=== PATIENT | female | born 1935 | race Caucasian/White ===

== ENCOUNTER 2022-05-27 14:20 | Observation (INO) | payer OTHER ==
--- OUTSIDE RECORDS SUMMARY | 2022-05-27 15:03 | XMS REPORT | Continuity of Care Document ---
:1935 Author Organization [facility] t Address [address] [place] [address] Care Team Providers Name Role Phone José Luis Pedroza Attending Clinician Unavailable IHDE_G Attending Clinician Unavailable Shield Attending Clinician Unavailable IHDE_G Admitting Clinician Unavailable Shield Admitting Clinician Unavailable Payers Payer Name Policy Type Policy Number Effective Date Expiration Date S ource MEDICARE [place]: [id number] 2001 [employer]) 00:00:00 Problems Condition Condition Condition Status Onset Resolution Last Treating Co mments Source Name Details Category Date Date Treatment Clinician Date Hypertensi Hypertensi Problem Active 2020-0 [facility] ve ve 5-20 da disorder Disorder 00:00: Medica l 00 Group Allergies, Adverse Reactions, Alerts Allergy Allergy Status Severity Reaction(s) Onset Inactive Treating Comm ents Source Name Type Date Date Clinician PENICILL Allergy Active Severe Rash [place] INS to da substanc Medical e Group Social History Smoking Status Start Date Stop Date Source Never Smoker [facility] Medications Ordered Filled Start Stop Current Ordering Indication Dosage Frequency Signature Comments Components Source Medication Medication Date Date Medication? Clinician (SIG) Name Name potassium potassium No potassium [place] chloride chloride chloride da 10MEQ 10MEQ 10MEQ Medical Group Vitamin D Vitamin D No Vitamin D [place] 50163 once 45260 once 84836 once da per week per week per week Med ical Group atorvastati atorvastati No 1 Q1D atorvastat [place] n 40 mg n 40 mg in 40 mg da tablet Take tablet Take tablet Medical 1 tablet 1 tablet Take 1 Group every day every day tablet by oral by oral every day route. route. by oral route. Issac Low Issac Low No 1 Q1D Issac Low [place] Strength 81 Strength 81 Strength da mg mg 81 mg Medical tablet,louisa tablet,louisa tablet,del Group yed release yed release ayed Take 1 Take 1 release tablet tablet Take 1 every day every day tablet by oral by oral every day route. route. by oral route. furosemide furosemide No 1 Q1D furosemide [place] 40 mg 40 mg 40 mg da tablet Take tablet Take tablet Medical 1 tablet 1 tablet Take 1 Group every day every day tablet by oral by oral every day route. route. by oral route. isosorbide isosorbide No 1 Q1D isosorbide [facility] mononitrate mononitrate mononitrat da ER 30 mg ER 30 mg e ER 30 mg M edical tablet,exte tablet,exte tablet,ext Group nded nded ended release 24 release 24 release 24 hr Take 1 hr Take 1 hr Take 1 tablet tablet tablet every day every day every day by oral by oral by oral route. route. route. Vital Signs Vital Name Observation Time Observation Value Comments Source BP Diastolic 2020-09-23 00:00:00 48 mm[Hg] [facility] Height 2020-09-23 00:00:00 62 [in_i] [facility] BMI (Body Mass 2020-09-23 00:00:00 22.3 kg/m2 [facility] Index) Group BP Systolic 2020-09-23 00:00:00 112 mm[Hg] [facility] Body Weight 2020-09-23 00:00:00 121.9 [lb_av] [facility] Procedures Procedure Date / Time Performed Performing Clinician Sourc e Tonsillectomy [facility] Appendectomy [facility] Encounters Start End Encounter Admission Attending Care Care Encounter Source Date/Time Date/Time Type Type Clinicians Facility Department ID 2022-05-25 2022-05-25 Outpatient SOHAIL Pedroza [facility] [id number] [place] 10:54:00 10:54:00 [id number] [facility] 2020 2020 Outpatient IHDE_G MMG MMG [id number] [place] 04:15:00 04:15:00 0525 Medical [facility] 2020-09-24 2020-09-24 Outpatient IHDE_G MMG MMG [id number] [place] 10:30:00 10:30:00 0521 [facility] 2020-09-23 2020-09-23 Outpatient Shield MMG MMG [id number] [place] 03:32:00 03:32:00 0520 Medical Group 2020-09-23 2020-09-23 [facility] [place] - [id number] [facility] 00:00:00 00:00:00 Seth Yañez MD: Medical [facility] [address], [place] [address] , Ph. [phone] 2020-03-24 2020-03-24 Outpatient Shield MMG MMG [id number] [place] 02:30:00 02:30:00 0519 Medical Group 2020-03-24 2020-03-24 Outpatient Shield MMG MMG [id number] [place] 02:30:00 02:30:00 1118 Medical [facility] Results Test Description Test Time Test Comments Results Result Comments Source Lipid Panel 2019-02-25 20:37:04 Test Item Value Reference Range Interpretation Comme nts Cholesterol Total (test code = 150 mg/dL 0-200 RISK OF HEART DISEASEPublished by Cholesterol Total) [place] Heart Association Analyte Optimal Borderl ine Increased RiskCHOL <200 2 00-239 >240TRIG <150 150-199 >2 00HDL Male >60 <40HDL Female > 60 <50LDL <100 130-159 >160LDL Near optimal is 100-129 Triglycerides (test code = 78 mg/dL 9-200 Triglycerides) HDL (test code = HDL) 89 mg/dL 50-60 H LDL (test code = LDL) 46 mg/dL 0-130 The eq uation being used in this calculation is LDL = (Chol - HDL) - (Trig / 5) VLDL (test code = VLDL) 16 mg/dL 5-40 The equation being used in this calculation is VLDL = Trig / 5 Chol/HDL (test code = Chol/HDL) 1.7 ratio 0.0-4.4 LDL/HDL Ratio (test code = 1 N T he equation being used in this LDL/HDL Ratio) calculation i s LDL/HDL Ratio=LDL Calc/HDL Chol Vitamin D, 33-[id number] 03:07:1134.7Vitamin D deficiency has been defined by the [place] ofMedicine and an Endocrine Society practice guideline as alevel of serum 25-OH vitamin D less than 20 ng/mL (1,2).The Endocrine Society went on to further define vitamin Dinsufficiency as a level between 21 and 29 ng/mL (2).1. IOM ([place] of [employer]). 2010. Dietary reference intakes for calcium and D. [place]: The National Academies Press.2. Viet MF, Dede DUNN, Katie INGRAM, et al. Evaluation, treatment, and prevention of vitamin D deficiency: an Endocrine Society clinical practice guideline. JCEM. 2010; 96(7):1911-30.Performed At: [facility] [address] [id number] Colin Miranda MD Ph:[phone] Sedimentation Rate [id number] 23:13:48 Test Item Value Reference Range Interpretation Comments ESR STAT (test code = ESR STAT) 10 mm/hr 0-20 Thyroid Stimulating [id number] 23:01:29 Test Item Value Reference Range Interpretation Comments TSH (test code = TSH) 2.270 mIU/mL 0.270-4.200 IG [id number] 22:58:40 Test Item Value Reference Range Interpretation Comments IG (test code = IG) 0.3 % 0.0-5.0 IG Abs (test code = IG Abs) 0 x10 N Complete Blood Count with [id number] 22:58:39 Test Item Value Reference Range Interpretation Comments WBC (test code = WBC) 6.4 x10 4.4-10.5 RBC (test code = RBC) 3.75 x10 3.75-5.20 Hgb (test code = Hgb) 11.5 g/dL 12.2-14.8 L MCV (test code = MCV) 90.90 fL 80.00-100.00 Hct (test code = Hct) 34.1 % 36.5-44.4 L MCHC (test code = 33.70 g/dL 32.00-37.50 MCHC) RDW CV (test code = 12.3 % 11.5-14.5 RDW CV) MCH (test code = MCH) 30.7 pg 27.0-32.5 Platelets (test code = 334.0 x10 140.0-440.0 Platelets) MPV (test code = MPV) 8.5 fL N Slide Review (test Auto Auto Result cr eated by code = Slide Review) GL_SJM_ SLIDE_REV_AUTO nRBC (test code = 0 N nRBC) NRBC Abs (test code = 0.00 x10 N NRBC Abs) IPF (test code = IPF) 0 % N Automated [id number] 22:58:39 Test Item Value Reference Range Interpretation Comments Neutro Auto (test code = Neutro 70.6 % 36.0-70.0 H Auto) Lymph Auto (test code = Lymph Auto) 16.8 % 12.0-44.0 [place] Auto (test code = [place] Auto) 7.7 % 0.0-11.0 Eos, Auto (test code = Eos, Auto) 3.8 % 0.0-7.0 Basophil Auto (test code = Basophil 0.8 % 0.0-2.0 Auto) Neutro Absolute (test code = Neutro 4.5 x10 1.6-7.4 Absolute) Lymph Absolute (test code = Lymph 1.07 x10 .50-4.60 Absolute) [place] Absolute (test code = [place] .49 x10 .00-1.20 Absolute) Eos Absolute (test code = Eos 0.24 x10 0.00-0.74 Absolute) Baso Absolute (test code = Baso 0.05 x10 0.00-0.21 Absolute) Comprehensive Metabolic [id number] 22:56:35 Test Item Value Reference Range Interpretation Comments Sodium Level (test code = Sodium 129.0 mmol/L 135.0-145.0 L Level) Potassium Level (test code = 4.2 mmol/L 3.5-5.1 Potassium Level) Chloride Level (test code = 91 mmol/L 98-105 L Chloride Level) CO2 (test code = CO2) 26 mmol/L 22-29 Anion Gap (test code = Anion 12 mmol/L 7-16 Gap) BUN (test code = BUN) 9.90 mg/dL 8.00-23.00 Creatinine Level (test code = 0.50 mg/dL 0.50-0.90 Creatinine Level) BUN/Creat Ratio (test code = 20 N BUN/Creat Ratio) Glucose Level (test code = 94 mg/dL 70-115 Glucose Level) Calcium Level (test code = 9.3 mg/dL 8.3-10.5 Calcium Level) Alk Phos (test code = Alk Phos) 90 U/L 35-104 Bilirubin Total (test code = 0.2 mg/dL 0.1-0.9 Bilirubin Total) Albumin Level (test code = 4.4 g/dL 3.5-5.2 Albumin Level) Protein Total (test code = 6.9 g/dL 6.4-8.3 Protein Total) ALT (test code = ALT) 6 U/L 1-33 AST (test code = AST) 15 U/L 1-32 Globulin (test code = Globulin) 2.5 g/dL 2.9-3.1 L A/G Ratio (test code = A/G 1.8 ratio N Ratio) Comprehensive Metabolic [id number] 22:56:35 Test Item Value Reference Range Interpretation Comments Sodium Level (test 129.0 mmol/L 135.0-145.0 L code = Sodium Level) Potassium Level 4.2 mmol/L 3.5-5.1 (test code = Potassium Level) Chloride Level (test 91 mmol/L 98-105 L code = Chloride Level) CO2 (test code = 26 mmol/L 22-29 CO2) Anion Gap (test code 12 mmol/L 7-16 = Anion Gap) BUN (test code = 9.90 mg/dL 8.00-23.00 BUN) Creatinine Level 0.50 mg/dL 0.50-0.90 (test code = Creatinine Level) BUN/Creat Ratio 20 N (test code = BUN/Creat Ratio) Glucose Level (test 94 mg/dL 70-115 code = Glucose Level) Calcium Level (test 9.3 mg/dL 8.3-10.5 code = Calcium Level) Alk Phos (test code 90 U/L 35-104 = Alk Phos) Bilirubin Total 0.2 mg/dL 0.1-0.9 (test code = Bilirubin Total) Albumin Level (test 4.4 g/dL 3.5-5.2 code = Albumin Level) Protein Total (test 6.9 g/dL 6.4-8.3 code = Protein Total) ALT (test code = 6 U/L 1-33 ALT) AST (test code = 15 U/L 1-32 AST) Globulin (test code 2.5 g/dL 2.9-3.1 L = Globulin) A/G Ratio (test code 1.8 ratio N = A/G Ratio) eGFR AA (test code = >60 N eGFR (e stimated eGFR AA) mL/min/1.73 m2 Glomerular Filtration Rate ) is an estimated va lue, calculated from the patient's serum creatinine usin g the MDRD equation. It is NOT the patient 's actual GFR. The eGFR provides a more clinically usef ul measure of kidn ey disease than se rum creatinine alone.This calculation marcelino es sex and race in to account, if the information is provided. If th e race is not provided, and t he patient is -Marce n, multiply by 1.2 12. If sex is not provided, and t he patient is fema le, multiply by 0.7 42. Results for pat ients <18 years of ag e have not been validated by th e MDRD study and should be interpreted wit h caution. eGFR R esult Interpretation: eGFR > or = 60 is in the Normal RangeeGF R < 60 may mean kid nuria diseaseeGFR < 1 5 may mean kidney failure Rang es recommended by the National Kidney Foundation, http://nkdep.ni h.gov Lipid [id number] 22:56:35 Test Item Value Reference Range Interpretation Comments Cholesterol Total 167 mg/dL 0-200 RISK OF HE ART (test code = DISEASEPublishe d by Cholesterol Total) [place] Heart Association Rosalva lyte Optimal Borderl ine Increased RiskC HOL <200 200-239 >240TRI G <150 150-199 >200HDL Male >60 <40HDL Fema le >60 <50LDL <100 130 -159 >160LDL Near op timal is 100-129 Triglycerides (test 125 mg/dL 9-200 code = Triglycerides) HDL (test code = HDL) 94 mg/dL 50-60 H LDL (test code = LDL) 48 mg/dL 0-130 The eq uation being used in this calcula tion is LDL = (Chol - H DL) - (Trig / 5) VLDL (test code = 25 mg/dL 5-40 The equati on being used VLDL) in this calcula tion is VLDL = Trig / 5 Chol/HDL (test code = 1.8 ratio 0.0-4.4 Chol/HDL) LDL/HDL Ratio (test 1 N The equa tion being used code = LDL/HDL Ratio) in thi s calculation is LDL/HDL Ratio=L DL Calc/HDL Chol Comprehensive Metabolic [id number] 22:56:35 Test Item Value Reference Range Interpretation Comments Sodium Level (test 129.0 mmol/L 135.0-145.0 L code = Sodium Level) Potassium Level 4.2 mmol/L 3.5-5.1 (test code = Potassium Level) Chloride Level (test 91 mmol/L 98-105 L code = Chloride Level) CO2 (test code = 26 mmol/L 22-29 CO2) Anion Gap (test code 12 mmol/L 7-16 = Anion Gap) BUN (test code = 9.90 mg/dL 8.00-23.00 BUN) Creatinine Level 0.50 mg/dL 0.50-0.90 (test code = Creatinine Level) BUN/Creat Ratio 20 N (test code = BUN/Creat Ratio) Glucose Level (test 94 mg/dL 70-115 code = Glucose Level) Calcium Level (test 9.3 mg/dL 8.3-10.5 code = Calcium Level) Alk Phos (test code 90 U/L 35-104 = Alk Phos) Bilirubin Total 0.2 mg/dL 0.1-0.9 (test code = Bilirubin Total) Albumin Level (test 4.4 g/dL 3.5-5.2 code = Albumin Level) Protein Total (test 6.9 g/dL 6.4-8.3 code = Protein Total) ALT (test code = 6 U/L 1-33 ALT) AST (test code = 15 U/L 1-32 AST) Globulin (test code 2.5 g/dL 2.9-3.1 L = Globulin) A/G Ratio (test code 1.8 ratio N = A/G Ratio) eGFR AA (test code = >60 N eGFR (e stimated eGFR AA) mL/min/1.73 m2 Glomerular Filtration Rate ) is an estimated va lue, calculated from the patient's serum creatinine usin g the MDRD equation. It is NOT the patient 's actual GFR. The eGFR provides a more clinically usef ul measure of kidn ey disease than se rum creatinine alone.This calculation marcelino es sex and race in to account, if the information is provided. If th e race is not provided, and t he patient is -Marce n, multiply by 1.2 12. If sex is not provided, and t he patient is fema le, multiply by 0.7 42. Results for pat ients <18 years of ag e have not been validated by [facility] MDRD study and should be interpreted wit h caution. eGFR R esult Interpretation: eGFR > or = 60 is in the Normal RangeeGF R < 60 may mean kid nuria diseaseeGFR < 1 5 may mean kidney failure Rang es recommended by the National Kidney Foundation, http://nkdep.ni h.gov eGFR Non-AA (test >60.00 N eGFR (amanda mated code = eGFR Non-AA) mL/min/1.73 m2 Glomer ular Filtration Rate ) is an estimated va lue, calculated from the patient's serum creatinine usin g the MDRD equation. It is NOT the patient 's actual GFR. The eGFR provides a more clinically usef ul measure of kidn ey disease than se rum creatinine alone.This calculation marcelino es sex and race in to account, if the information is provided. If th e race is not provided, and t he patient is -Macre n, multiply by 1.2 12. If sex is not provided, and t he patient is fema le, multiply by 0.7 42. Results for pat ients <18 years of ag e have not been validated by [facility] MDRD study and should be interpreted wit h caution. eGFR R esult Interpretation: eGFR > or = 60 is in the Normal RangeeGF R < 60 may mean kid nuria diseaseeGFR < 1 5 may mean kidney failure Rang es recommended by the National Kidney Foundation, http://nkdep.ni h.gov
--- NOTE | 2022-05-27 15:53 | RAD REPORT ---
EXAM DESCRIPTION: CT - Head Brain Wo Cont - 05/27/2022 3:39 pm CLINICAL HISTORY: weakness, elevated blood pressure COMPARISON: <Comparisons> TECHNIQUE: All CT scans are performed using dose optimization technique as appropriate and may inclu de automated exposure control or mA/KV adjustment according to patient size. FINDINGS: No intracranial hemorrhage, hydrocephalus or extra-axial fluid collection.No areas of brai n edema or evidence of midline shift. The patient's head is rotated. Questionable area of hypoattenua tion at the caudal aspect of the left cerebellar hemisphere. Cerebral atrophy. Mild chronic small ves anmol ischemic changes. Air-fluid level in the right maxillary sinus. The calvarium is intact. IMPRESSION: No acute large vascular territory infarct or intracranial hemorrhage. Small region of le ft cerebellar hypoattenuation that could be artifact or infarct.
[2022-05-27 16:50] LABS: Absolute Lymphocytes (CBC) 1.4 K/uL (0.7-4.9); Lymphocytes % 22.4 % (15.3-44.8); MCV 87.6 fL (80-100); MPV 7.1 fL (7.6-11.3); RBC Red Blood Cell Count 3.88 M/uL (3.86-4.86)
[2022-05-27 17:30] LABS: Albumin 3.2 g/dL (3.4-5.0); Bilirubin Total 0.8 mg/dL (0.2-1.0); Troponin High Sensitivity 7.7 pg/mL (<58.9)
--- NOTE | 2022-05-27 18:48 | RAD REPORT ---
EXAM DESCRIPTION: CT - Neck Angio - 05/27/2022 6:39 pm CLINICAL HISTORY: weakness COMPARISON: No comparisons TECHNIQUE: CT angiography of the neck vessels was performed with MIPs. All CT scans are performed using dose optimization technique as appropriate and may include automated exposure control or mA/KV adjustment according to patient size. FINDINGS: A left aortic arch is identified with normal three vessel configuration of the great vesse ls. No significant flow abnormality is seen of the common carotid bilaterally. No significant stenosis is identified involving the cervical segments of both internal carotid arteri es. Normal flow is seen within both vertebral arteries. Calcified noncalcified plaque at the right distal common carotid artery and proximal ICA. Calcified p laque at the left carotid bifurcation. IMPRESSION: No significant flow abnormality of the neck vessels is identified.
--- NOTE | 2022-05-27 18:50 | RAD REPORT ---
EXAM DESCRIPTION: CT - Head angio - 05/27/2022 6:39 pm CLINICAL HISTORY: weakness COMPARISON: Head Brain Wo Cont dated 05/27/2022 TECHNIQUE: CT angiography of the head was performed with MIPs. All CT scans are performed using dose optimization technique as appropriate and may include automated exposure control or mA/KV adjustment according to patient size. FINDINGS: Anterior circulation: Calcified plaque involving both of the cavernous carotids. No aneurysm or large vessel occlusion. No hemodynamically significant stenosis. No arteriovenous malformation identified. Posterior circulation: type right SHANK BREAKER. No aneurysm or large vessel occlusion. No hemodynamically significant stenosis. No arteriovenous malformation identified. IMPRESSION: No significant flow abnormality is detected.
--- NOTE | 2022-05-27 19:09 | EDPHYS ---
Physician Documentation [facility] Name: Yamilka Martinez Age: 86 yrs Sex: Female : 1935 Arrival Date: 05/27/2022 Time: 14:23 Bed 7 Private MD: Jaxon Pedroza ED Physician Tono Godfrey HPI: 05/27 14:52 This 86 yrs old Female presents to ER via Wheelchair with complaints of High Blood jmm Pressure. 14:52 The patient has elevated blood pressure and discovered this at home. Onset: The jmm symptoms/episode began/occurred gradually, 2 week(s) ago. Is an 86-year-old female with history of coronary artery disease, hypertension the presents emerged department with complaints of an elevation in her blood pressure over the past 2 weeks. Patient states she is normally around 117 systolic and is now around 160. Patient is seeing her wholesale loan processor to help regulate her blood pressure and recommending metoprolol 25 mg twice daily which before was just 1 time a day. Patient also states that she has had intermittent episodes of weakness. Family states that she is previously attributed this to vertigo.. Historical: - Allergies: 15:14 No Known Allergies; vg1 - Home Meds: 15:14 Metoprolol Tartrate Oral [Active]; atorvastatin oral [Active]; Lasix Oral [Active]; vg1 Isosorbide Mononitrate Oral [Active]; - PMHx: 15:14 Myocardial infarction; Hypertensive disorder; vg1 - PSHx: 15:14 Appendectomy; vg1 - Immunization history:: Client reports having NOT received the Covid vaccine. - Social history:: Smoking status: Patient denies any tobacco usage or history of. ROS: 14:52 Constitutional: Negative for fever, chills, and weight loss, Cardiovascular: Negative jmm for chest pain, palpitations, and edema, Respiratory: Negative for shortness of breath, cough, wheezing, and pleuritic chest pain. 14:52 Neuro: Positive for weakness. 14:52 All other systems are negative. Exam: 14:52 Constitutional: This is a well developed, well nourished patient who is awake, alert, jmm and in no acute distress. Chest/axilla: Normal chest wall appearance and motion. Cardiovascular: Regular rate and rhythm. No edema appreciated Respiratory: Normal respirations, no respiratory distress appreciated 14:52 Head/Face: atraumatic. Eyes: EOMI, no conjunctival erythema appreciated ENT: Moist Mucus Membranes Neck: Trachea midline, Supple Abdomen/GI: Non distended Back: Normal ROM Skin: General appearance color normal MS/ Extremity: Moves all extremities, no obvious deformities appreciated, no edema noted to the lower extremities Neuro: Awake and alert Psych: Behavior is normal, Mood is normal, Patient is cooperative and pleasant 14:52 Neuro: Orientation: is normal, Mentation: is normal, Memory: is normal, Motor: is normal. 14:52 Psych: Behavior/mood is pleasant, cooperative. Vital Signs: 15:08 BP 159 / 74; Pulse 64; Resp 17; Temp 98.4(TE); Pulse Ox 98% on R/A; Weight 50.8 kg; vg1 Height 5 ft. 3 in. (160.02 cm); Pain 0/10; 18:35 BP 157 / 65; Pulse 64; Resp 16; Pulse Ox 97% ; bp 20:50 BP 167 / 76; Pulse 68; Resp 18 S; Pulse Ox 96% on R/A; as6 21:28 BP 141 / 66; Pulse 61; Resp 18 S; Pulse Ox 96% on R/A; as6 15:08 Body Mass Index 19.84 (50.80 kg, 160.02 cm) vg1 MDM: 14:52 Patient medically screened. jen 19:07 Data reviewed: vital signs, nurses notes. Consideration of Admission/Observation jen Patient was admitted/placed on observation. Management of patient was discussed with the following: Hospitalist: Aneudy Marcos. Pediatric Dermatologist: Dr. Guerin. I considered the following discharge prescriptions or medication management in the emergency department Antihypertensives: At this time antihypertensives are not recommended. We recommend home blood pressure checks and following up with primary care provider. Historians other than the Patient: Son. Counseling: I had a detailed discussion with the patient and/or guardian regarding: the historical points, exam findings, and any diagnostic results supporting the discharge/admit diagnosis, lab results, radiology results, the need for further work-up and treatment in the hospital. 19:08 ED course: CT reveals signs of infarction. I did discuss this with Dr. Andrade and jen stated that this was most likely an infarction that occurred over 24 hours ago. Patient's symptoms have been ongoing for weeks. JOSE GUADALUPEKa was not administered due to timeframe.. 05/27 14:53 Order name: CBC with Diff; Complete Time: 16:53 [facility] 05/27 14:53 Order name: CMP; Complete Time: 17:30 [facility] 05/27 14:53 Order name: Troponin High Sensitivity; Complete Time: 17:30 [facility] 05/27 14:55 Order name: CT Head Brain wo Cont; Complete Time: 15:56 [facility] 05/27 17:35 Order name: CT Head Angio [facility] 05/27 19:09 Order name: SARS RAPID; Complete Time: 10:13 as6 05/27 14:53 Order name: EKG - Nurse/Tech; Complete Time: 15:26 [facility] 05/27 14:53 Order name: Saline Lock; Complete Time: 16:30 [facility] 05/27 17:35 Order name: CT Neck Angio; Complete Time: 18:51 [facility] 05/27 17:39 Order name: Head angio; Complete Time: 18:51 EDMS Administered Medications: 20:41 Drug: Potassium Effervescent Tablet 50 mEq Route: PO; aa9 21:29 Follow up: Response: No adverse reaction as6 20:41 Drug: Aspirin Chewable Tablet 324 mg Route: PO; aa9 21:29 Follow up: Response: No adverse reaction as6 Disposition: 05/28 09:14 Co-signature as Attending Physician, Tono Godfrey MD I reviewed the patient's care rn provided by the Advanced Practice Provider and agree with the diagnosis and treatment plan. Disposition Summary: 05/27/22 19:08 Hospitalization Ordered Hospitalization Status: Inpatient Admission [facility] Provider: Abdoul Godfrey Location: Telemetry/MedSurg (Inpatient) jm Condition: Stable jm Problem: new jmm Symptoms: are unchanged jm Bed/Room Type: Standard [facility] Room Assignment: 430(05/27/22 21:03) Diagnosis - Cerebral infarction, unspecified [facility] Forms: - Medication Reconciliation Form jmm - SBAR form jmm Signatures: Dispatcher [employer] EDMS Abbe Robert PA PA jmm Tono Godfrey MD MD rn Attema, Lee, DOG OR ANIMAL SITTER-C DOG OR ANIMAL SITTER-Cla1 Alyce Xie RN RN cg Karina Xie RN RN vg1 Bianca Marquez RN RN aa9 Ino Morales RN as6 Corrections: (The following items were deleted from the chart) 05/27 21:03 19:08 jen durand
--- NOTE | 2022-05-27 19:09 | ER ---
Nurse's Notes [facility] Name: Yamilka Martinez Age: 86 yrs Sex: Female : 1935 Arrival Date: 05/27/2022 Time: 14:23 Bed 7 Private MD: Jaxon Pedroza Diagnosis: Cerebral infarction, unspecified Presentation: 05/27 15:08 Chief complaint: Patient states: 160 systolic at home this morning; stated 'normal' BP vg1 117-120 systolic. Denies Chest pain, NV, or headache. Was told my DR PEDROZA to take metoprolol 25 mg morning and night instead of once a day. Coronavirus screen: Vaccine status: Patient reports being unvaccinated. Client denies travel out of the [place] in the last 14 days. Ebola Screen: Patient negative for fever greater than or equal to 101.5 degrees Fahrenheit, and additional compatible Ebola Virus Disease symptoms. Initial Sepsis Screen: Does the patient meet any 2 criteria? No. Patient's initial sepsis screen is negative. Does the patient have a suspected source of infection? No. Patient's initial sepsis screen is negative. Risk Assessment: Do you want to hurt yourself or someone else? Patient reports no desire to harm self or others. Onset of symptoms was May 20, 2022. 15:08 Method Of Arrival: Wheelchair vg1 15:08 Acuity: PABLITO 3 vg1 Triage Assessment: 15:14 General: Appears in no apparent distress. comfortable, Behavior is calm, cooperative. vg1 Pain: Denies pain. Neuro: Level of Consciousness is awake, alert, obeys commands, Oriented to person, place, time, situation, Denies headache. Cardiovascular: Denies chest pain, lightheadedness, nausea. GI: Patient currently denies nausea, vomiting. Historical: - Allergies: 15:14 No Known Allergies; vg1 - Home Meds: 15:14 Metoprolol Tartrate Oral [Active]; atorvastatin oral [Active]; Lasix Oral [Active]; vg1 Isosorbide Mononitrate Oral [Active]; - PMHx: 15:14 Myocardial infarction; Hypertensive disorder; vg1 - PSHx: 15:14 Appendectomy; vg1 - Immunization history:: Client reports having NOT received the Covid vaccine. - Social history:: Smoking status: Patient denies any tobacco usage or history of. Screenin:[address] [facility] ED Fall Risk Assessment (Adult) History of falling in the last 3 months, bp including since admission. Abuse screen: Denies threats or abuse. Denies injuries from another. Nutritional screening: No deficits noted. Tuberculosis screening: No symptoms or risk factors identified. Assessment: 16:30 General: SEE TRIAGE NOTE. bp 18:30 Reassessment: No changes from previously documented assessment. Patient and/or family bp updated on plan of care and expected duration. Pain level reassessed. 19:08 General: Appears in no apparent distress. comfortable, Behavior is calm, cooperative, aa9 appropriate for age. Neuro: Level of Consciousness is awake, alert, obeys commands, Oriented to person, place, time, situation. 20:55 Reassessment: Patient appears in no apparent distress at this time. Patient and/or aa9 family updated on plan of care and expected duration. Pain level reassessed. Patient is alert, oriented x 3, equal unlabored respirations, skin warm/dry/pink. Vital Signs: 15:08 BP 159 / 74; Pulse 64; Resp 17; Temp 98.4(TE); Pulse Ox 98% on R/A; Weight 50.8 kg; vg1 Height 5 ft. 3 in. (160.02 cm); Pain 0/10; 18:35 BP 157 / 65; Pulse 64; Resp 16; Pulse Ox 97% ; bp 20:50 BP 167 / 76; Pulse 68; Resp 18 S; Pulse Ox 96% on R/A; as6 21:28 BP 141 / 66; Pulse 61; Resp 18 S; Pulse Ox 96% on R/A; as6 15:08 Body Mass Index 19.84 (50.80 kg, 160.02 cm) vg1 ED Course: 14:23 Patient arrived in ED. as 14:23 Jaxon Pedroza is Private Physician. as 14:33 Abbe Robert PA is PHCP. jmm 14:33 Tono Godfrey MD is Attending Physician. jmm 15:14 Triage completed. vg1 15:14 Arm band placed on. vg1 15:41 CT Head Brain wo Cont In Process Unspecified. EDMS 16:19 Kentrell Queen, RN is Primary Nurse. bp 16:29 Inserted saline lock: 22 gauge in left forearm, using aseptic technique. Blood bp collected. 18:30 Patient has correct armband on for positive identification. Bed in low position. Call bp light in reach. Side rails up X2. 18:41 Head angio In Process Unspecified. EDMS 18:41 CT Neck Angio In Process Unspecified. EDMS 19:07 Head of bed elevated. aa9 19:08 Abdoul Godfrey MD is Hospitalizing Provider. jen 19:45 Assisted to bedside commode. as6 20:56 Diet: Patient given snack. Patient given water. Tolerated well. aa9 21:28 No provider procedures requiring assistance completed. Patient admitted, IV remains in as6 place. Administered Medications: 20:41 Drug: Potassium Effervescent Tablet 50 mEq Route: PO; aa9 21:29 Follow up: Response: No adverse reaction as6 20:41 Drug: Aspirin Chewable Tablet 324 mg Route: PO; aa9 21:29 Follow up: Response: No adverse reaction as6 Medication: 18:30 VIS not applicable for this client. bp Outcome: 19:08 Decision to Hospitalize by Provider. jen 21:28 Condition: stable as6 21:28 Instructed on the need for admit. 22:04 Admitted to Tele accompanied by tech, via stretcher, room 430, with chart, Report as6 called to Anahy PARIS 22:05 Patient left the ED. as6 Signatures: Dispatcher [employer] EDMS Abbe Robert PA PA jmm Martinez, Amelia as Peltier, Brian, RN RN Karina Pham, RN RN vg1 Ino Morales, RN RN as6 Bianca Marquez, RN RN aa9
[2022-05-27 20:16] LABS: SARS-CoV-2 Antigen Rapid Res Negative (Negative)
--- NOTE | 2022-05-27 20:19 | P.HP ---
Certification for Inpatient Patient admitted to: Observation With expected LOS: <2 Midnights Patient will require the following post-hospital care: None Practitioner: I am a practitioner with admitting privileges, knowledge of patient current condition, hospital course, and medical plan of care. Services: Services provided to patient in accordance with Admission requirements found in Title 42 Section 412.3 of the Code of Federal Regulations Patient History Date of Service: 05/27/22 Reason for admission: CVA, dizziness History of Present Illness: 86-year-old female with history of CAD, hypertension presents to the emergency department with chief complaint of elevated blood pressure, "shakiness". Patient reports her blood pressures been elevated over her baseline at home with readings in the 160s systolic when she typically runs much lower than it is in the 115-120 range. She also reports feeling dizzy earlier today although she does have a history of vertigo as well as feeling unwell and shaky throughout the day. She was evaluated in the emergency department her labs were significant for mild hypokalemia with a potassium of 3.[address] head without contrast was performed which revealed no acute large vascular territory infarct or intracranial hemorrhage. Small region of left cerebellar hypoattenuation that could be artifact or infarct. ED provider discussed case with neurology who recommends observation in the hospital, further evaluation with angiograms. CT head and neck angio was performed which were negative for any large vessel occlusions. ED read wishes to admit under observation for suspected CVA, dizziness. - Past Medical/Surgical History -: CAD -: Hypertension -: Appendectomy Psychosocial/ Personal History: Patient lives at home in an apartment in [place] - Family History Family History: Reviewed- Non-Contributory - Social History Smoking Status: Never smoker Alcohol use: No CD- Drugs: No Caffeine use: Yes Place of Residence: Home Review of Systems 10-point ROS is otherwise unremarkable Neurological: Weakness, Other (Dizziness, shakiness) Physical Examination - Physical Exam General: Alert, In no apparent distress, Oriented x3 HEENT: Atraumatic, PERRLA, Mucous membr. moist/pink, EOMI, Sclerae nonicteric Neck: Supple, 2+ carotid pulse no bruit, No LAD, Without JVD or thyroid abnormality Respiratory: Clear to auscultation bilaterally, Normal air movement Cardiovascular: Regular rate/rhythm, Normal S1 S2 Capillary refill: <2 Seconds Gastrointestinal: Normal bowel sounds, No tenderness Musculoskeletal: No tenderness Integumentary: No rashes Neurological: Normal speech, Normal strength at 5/5 x4 extr, Normal tone, Normal affect, Other (Patient leans to the left, she reports this is related to her chronic kyphosis/scoliosis. Appears to have mild facial droop when leaning to the left but when she sit straight there is no longer present, believe this is p ositional. NIH currently 0.) - Studies Laboratory Data (last 24 hrs) 05/27/22 16:30: Sodium 139, Potassium 3.0 L, BUN 5 L, Creatinine 0.48 L, Glucose 92, Total Bilirubin 0.8, AST 16, ALT 13, Alkaline Phosphatase 88 05/27/22 16:30: WBC 6.50, Hgb 11.7 L, Hct 34.0 L, Plt Count 309 Assessment and Plan - Plan Assessment: Dizziness, suspected cerebellar CVA Hypertension Hypokalemia History of CAD Plan: Dizziness, suspected cerebellar CVA Small cerebellar infarct versus artifact noted on CT. NIH currently 0 although patient does report dizziness/shakiness. Neurology consult, PT/OT, neurochecks, MRI, echocardiogram, carotid Doppler, lipid panel ordered. Patient on aspirin, statin, folic acid currently. Await further evaluation. Hypertension Continue medications, patient's blood pressure medication metoprolol 25 mg was recently increased from once daily to twice daily by her PCP. Hypokalemia Replaced in ED, protocol in place. History of CAD Continue home meds. DVT PPX: Lovenox Code status: Full Discharge Plan: Home Plan to discharge in: 24 Hours - Advance Directives Does patient have a Living Will: No Does patient have a Durable POA for Healthcare: No - Code Status/Comfort Care Code Status Assessed: Yes (Full code) Critical Care: No Time Spent Managing Pts Care (In Minutes): 55
[2022-05-27] MEDS ORDERED: ASPIRIN 81 MG CHEWABLE TABLET ONE (20:37)
[2022-05-27] MEDS ORDERED: POTASSIUM 25 MEQ EFFERV TAB ONE (20:38)
[2022-05-27 23:04] VITALS: BMI 21.6
[2022-05-27] MEDS ORDERED: ATORVASTATIN 40 MG TAB PO SCH (23:17)
[2022-05-27] MEDS ORDERED: ACETAMINOPHEN 500 MG TAB PO PRN (23:17)
[2022-05-27] MEDS ORDERED: ONDANSETRON 4 MG/2 ML VIAL IV PRN (23:17)
[2022-05-27 23:46] LABS: Thyroid Stimulating Hormone 1.29 uIU/mL (0.358-3.740)
[2022-05-28 03:43] LABS: Absolute Lymphocytes (CBC) 1.7 K/uL (0.7-4.9); Hematocrit 29.9 % (36.0-45.0); Lymphocytes % 30.2 % (15.3-44.8); MCV 87.3 fL (80-100); MPV 7.3 fL (7.6-11.3); RBC Red Blood Cell Count 3.43 M/uL (3.86-4.86)
[2022-05-28 03:58] LABS: Potassium 3.3 mmol/L (3.5-5.1)
[2022-05-28] MEDS ORDERED: METOPROLOL TAR 25 MG TAB PO SCH (06:00)
[2022-05-28] MEDS ORDERED: FOLIC ACID 1 MG TABLET PO SCH (09:00)
[2022-05-28] MEDS ORDERED: ASPIRIN EC 81 MG TAB PO SCH (09:00)
[2022-05-28] MEDS ORDERED: ENOXAPARIN 40 MG/0.4 ML SQ SCH (09:00)
--- NOTE | 2022-05-28 09:40 | RAD REPORT ---
EXAM DESCRIPTION: US - CP - 05/28/2022 7:08 am CLINICAL HISTORY: cva Headache, drowsiness, CVA COMPARISON: Neck Angio dated 05/27/2022 TECHNIQUE: Real-time sonographic evaluation of both carotid systems was performed. Doppler interroga tion was performed with waveform tracing bilaterally. FINDINGS: Normal high resistance waveforms are noted in both external carotid arteries. The common c arotid arteries and internal carotid arteries show normal low resistance waveforms. There is mild plaque in both carotid bulbs. Peak systolic and end diastolic velocity values and the I CA/CCA ratios are in the non-hemodynamically significant range. Antegrade flow seen in both vertebral arteries. IMPRESSION: Mild carotid bulb plaquing. No evidence of a hemodynamically significant stenosis.
[2022-05-28 11:49] VITALS: O2SAT 95
[2022-05-28 14:41] VITALS: BP 138/62; TEMP 98.2
--- NOTE | 2022-05-29 16:55 | EKG ---
Test Date: 2022-05-27 Test Time: 15:26:13 Safety Engineer: RUTH MEASUREMENT RESULTS: Intervals: Rate: 67 [place]: 184 QRSD: 84 QT: 386 QTc: 407 [place]: P: 49 [place]: 184 QRS: 9 T: 36 INTERPRETIVE STATEMENTS: Normal sinus rhythm Nonspecific ST abnormality Abnormal ECG No previous ECG available for comparison Electronically Signed On 05-29-22 16:52:38 DIRECTOR OF SECURITIES AND REAL ESTATE by Lencho Bolivar
== END 2022-05-28 14:25 | disposition home or self-care (01) ==
LOC: ER 14:20 → ERHOLD 19:51 → 4TH 21:31
PROVIDERS: ADMIT Hospitalist; ATTEND Hospitalist
DX: R42 Dizziness and giddiness (principal); I10 Essential (primary) hypertension; E87.6 Hypokalemia; I25.10 Atherosclerotic heart disease of native coronary artery without angina pectoris; Z20.822 Contact with and (suspected) exposure to COVID-19
CPT/HCPCS: 93005; 85025 ×2; 80048; 36415; 80061; 84443; 84484; 84439; 80053; 70450; 70496; 70498; 93880; 99285; 87811; Q9967; J1650; G0378 ×4